=== PATIENT | female | born 1995 | race African-American/Black ===

== ENCOUNTER 2024-02-25 11:03 | Emergency (ER) | payer OTHER ==
[~2024-02-25] VITALS: Ht 162.6 cm; Wt 120.0 kg
[2024-02-25 11:20] VITALS: BP 142/90
[2024-02-25 11:47] VITALS: PULSE 66; RESP 17; TEMP 97.7; O2SAT 98
== END 2024-02-25 13:26 | disposition home or self-care (01) ==
LOC: ER 11:03
DX: S00.83XA Contusion of other part of head, initial encounter (principal); R42 Dizziness and giddiness; R11.0 Nausea; Y08.89XA Assault by other specified means, initial encounter; Y93.89 Activity, other specified; Y92.89 Other specified places as the place of occurrence of the external cause; Y99.8 Other external cause status
CPT/HCPCS: 70486